=== PATIENT | male | born 2000 | race Hispanic/Latino ===

== ENCOUNTER 2020-07-28 16:46 | Emergency (ER) | payer BC ==
[~2020-07-28] VITALS: Ht 167.6 cm; Wt 54.4 kg
== END 2020-07-28 20:10 | disposition home or self-care (01) ==
LOC: ER 17:10
DX: T45.0X1A Poisoning by antiallergic and antiemetic drugs, accidental (unintentional), initial encounter (principal)
CPT/HCPCS: 93005; 99283

== ENCOUNTER 2023-03-14 12:31 | Emergency (ER) | payer OTHER, BC ==
[~2023-03-14] VITALS: Ht 167.6 cm; Wt 54.4 kg
[2023-03-14 12:50] VITALS: O2SAT 100
[2023-03-14] MEDS ORDERED: NAPROXEN250 MG PO (15:52)
== END 2023-03-14 16:13 | disposition home or self-care (01) ==
LOC: ER 12:41
DX: M25.561 Pain in right knee (principal); Y93.71 Activity, boxing; Y92.39 Other specified sports and athletic area as the place of occurrence of the external cause
CPT/HCPCS: 99283